=== PATIENT | female | born 1940 | race Caucasian/White ===

== ENCOUNTER → 2018-10-15 12:10 | Outpatient (CLI) | payer MEDICARE, OTHER ==
[2013-09-17 11:10] VITALS: BMI 30.6
[~2018-10-15 12:10] MED LIST: HCTZ25 MG PO; PAROXETINE HCL10 MG PO; TOPROL XL50 MG PO
--- NOTE | 2018-10-16 14:37 | EC ---
PATIENT:JOSE YEUNG DATE OF SERVICE: 10/15/18 SEX: F MEDICAL RECORD: [id number] DATE OF : 42 LOCATION:[facility] AGE OF PATIENT: 78 ADMISSION DATE: 10/15/18 REFERRING PHYSICIAN: INTERPRETING PHYSICIAN: SEN CALL MD ECHOCARDIOGRAM REPORT ECHO CHARGES 4 ECHO COMPLETE Date: 10/15/18 CLINICAL DIAGNOSIS: MITRAL REGURG ECHOCARDIOGRAPHIC MEASUREMENTS (adult normal given) AC root (d.<3.7cm) 3.3 cm LV Septum d (<1.2 cm> 1.2 cm Valve Excursion 1.8 cm LV Septum (systole) 1.5 cm Left Atria (s.<4.0cm> 4.0 cm LVPW d(<1.2cm) 1.3 cm RV (d.<2.3cm) 3.3 cm LVPW (sytole) 1.5 cm LV diastole(<5.6CM) 4.4 cm MV E-F(>70mm/sec) cm LV systole 3.0 cm LVOT Diameter 1.6 cm MV exc.(>10mm) 1.3 cm Est.ejection fraction (50-75%) % DOPPLER: LVIT cm/sec A 106 cm/sec E 51.0 cm/sec LA cm/sec RVSP 27 mmHg LVOT 91 cm/sec AOP1/2T m/s Asc. Ao 125 cm/sec RVOT 82 cm/sec RA cm/sec PA 94 cm/sec AV Gradient Peak 6.23 mmHg AV Mean 3.46 mmHg AV Area 14.5 cm MV Gradient Peak 5.78 mmHg MV Mean 1.69 mmHg MV Area cm COMMENTS: [employer] Forming Machine Adjuster: Miguel LINCOLN [employer] Specialist: Dewayne Call TAPE# PACS Pericardial Effusion N DATE OF SERVICE: 10/15/2018 FINDINGS: 1. Left ventricular chamber size is within normal limits. Left ventricular systolic function is normal. Overall ejection fraction estimated at 60%. 2. Left atrium is upper limits of normal at 4.0 cm. Right atrium and right ventricular chamber sizes are mildly dilated. 3. Valvular structures have normal structure and motion. 4. Doppler interrogation reveals mild mitral regurgitation and mild tricuspid regurgitation. No other valvular insufficiency or stenosis. Pulmonary systolic ECHOCARDIOGRAM REPORT [id number] JOSE YEUNG pressure is estimated at 27 mmHg. 5. No evidence of pericardial effusion or left ventricular thrombus. TRANSINT:[id number] Voice Confirmation ID: [id number] DOCUMENT ID: [id number] SEN CALL MD at 1437 CC: [id number] DICTATION DATE: 10/15/18 1550 ASSISTANT MAINTENANCE MANAGER: 10/15/18 1702 DEP CLI 10/15/18 [facility] [address] [id number]
== END | disposition home or self-care (01) ==
LOC: D.HCCARDIO 12:10
PROVIDERS: ATTEND Internal Medicine Interventional Cardiology
DX: I50.9 Heart failure, unspecified (principal)